=== PATIENT | female | born 1990 | race African-American/Black ===

== ENCOUNTER 2019-04-29 15:39 | Emergency (ER) | payer MEDICAID ==
[~2019-04-29] VITALS: Ht 154.9 cm; Wt 61.2 kg
[2019-04-29 16:14] VITALS: BP 125/88
== END 2019-04-29 17:59 | disposition left against medical advice (07) ==
LOC: ER 16:50
DX: Z53.21 Procedure and treatment not carried out due to patient leaving prior to being seen by health care provider (principal)